=== PATIENT | male | born 1975 | race Two or more races ===

== ENCOUNTER 2017-09-21 19:36 | Emergency (ER) | payer SELFPAY | END 2017-09-21 21:05 | disposition home or self-care (01) | LOC: D.ER 19:36 | DX: S30.1XXA Contusion of abdominal wall, initial encounter (principal); V43.52XA Car driver injured in collision with other type car in traffic accident, initial encounter; Y93.89 Activity, other specified; Y92.410 Unspecified street and highway as the place of occurrence of the external cause ==

== ENCOUNTER 2019-05-30 11:16 | Emergency (ER) | payer SELFPAY ==
[~2019-05-30] VITALS: Ht 170.2 cm; Wt 77.3 kg
[2019-05-30 11:22] VITALS: Ht 170.2 cm; Wt 77.3 kg
[2019-05-30] MEDS ORDERED: STERAPRED 5MG 65 M1 PO (12:54)
[2019-05-30] MEDS ORDERED: DICLOFENAC SODI50 MG PO (12:55)
[2019-05-30 13:16] VITALS: BP 130/84
== END 2019-05-30 13:18 | disposition home or self-care (01) ==
LOC: D.ER 11:16
DX: R07.81 Pleurodynia (principal)